=== PATIENT | male | born 1955 | race American Indian/Alaskan Native ===

== ENCOUNTER 2017-05-03 12:39 | Emergency (ER) | payer BC ==
[2017-05-03] MEDS ORDERED: Sodium Chloride 0.9% 1,000 ML IV ONE (13:29)
[2017-05-03] MEDS ORDERED: Sodium Chloride 0.9% 1,000 ML ONE (13:34)
[2017-05-03 13:43] LABS: BASO % 0.3 % (0.0-2.0); HEMATOCRIT 43.8 % (35.0-51.0); LYMPH # 0.6 K/uL (1.0-4.3); LYMPH % 9.5 % (20.0-40.0); MEAN CELL VOLUME 86.4 fL (80.0-94.0); MEAN CORPUSCULAR HEMOGLOBIN 27.3 pg (27.0-31.0); MEAN CORPUSCULAR HGB CONC 31.6 g/dL (33.0-37.0); MEAN PLATELET VOLUME 9.5 fL (7.2-11.7); MONO # 0.3 K/uL (0.0-0.8); MONO % 5.3 % (0.0-10.0); PLATELET COUNT 158 K/uL (130-400); RED CELL DISTRIBUTION WIDTH 13.6 % (11.5-14.5); WHITE BLOOD COUNT 6.6 K/uL (4.8-10.8)
[2017-05-03 13:44] LABS: CHLORIDE 98 mmol/L (98-107)
[2017-05-03 13:45] LABS: SODIUM 139 mmol/L (132-148)
[2017-05-03 13:47] LABS: ALKALINE PHOSPHATASE 55 U/L (38-126); AST/SGOT 29 U/L (17-59); BILIRUBIN,TOTAL 0.7 mg/dL (0.2-1.3); BLOOD UREA NITROGEN 20 mg/dL (9-20); CARBON DIOXIDE 29 mmol/L (22-30); GFR AFRICAN-AMERICAN > 60; RBC URINE 49 /hpf (0-3); TOTAL PROTEIN 8.6 g/dL (6.3-8.3); URINE BILIRUBIN NEGATIVE (NEGATIVE); URINE BLOOD 1+ (NEGATIVE); URINE COLOR Yellow (YELLOW); URINE GLUCOSE (UA) NORMAL (Normal); URINE KETONE TRACE mg/dL (NEGATIVE); URINE LEUKOCYTE ESTERASE NEG Leu/uL (Negative); URINE PROTEIN NEGATIVE (NEGATIVE); URINE UROBILINOGEN NORMAL mg/dL (0.2-1.0); WBC URINE 1 /hpf (0-5)
[2017-05-03 13:48] LABS: ALT/SGPT 31 U/L (21-72); CALCIUM 9.4 mg/dl (8.6-10.4); GLUCOSE,RANDOM 112 mg/dL (75-110)
--- NOTE | 2017-05-03 13:52 | C.PDOC ---
History Of Present Illness 61 y/o male presents to ED with c/o left flank pain starting yesterday since approx 11:00. Patient describes pain as constant, sharp, non-radiating, and associated with nausea and vomiting. He denies diarrhea, dysuria/hematuria. Patient also reports chills, but did not take his temperature. He denies history of kidney stones or UTIs/pyelonephritis. Time Seen by Provider: 05/03/17 13:05 Chief Complaint (Nursing): Male Genitourinary History Per: Patient History/Exam Limitations: no limitations Onset/Duration Of Symptoms: Days Current Symptoms Are (Timing): Still Present Quality Of Discomfort: "Pain" Associated Symptoms: Chills, Nausea, Vomiting. denies: Fever, Diarrhea, Urinary Symptoms Past Medical History Reviewed: Historical Data, Nursing Documentation, Vital Signs Vital Signs: Last Vital Signs Temp 98.5 F 05/03/17 16:09 Pulse 78 05/03/17 16:09 Resp 18 05/03/17 16:09 BP 167/97 H 05/03/17 16:09 Pulse Ox 100 05/03/17 16:09 - Medical History PMH: CHF, HTN Family History: States: No Known Family Hx - Social History Hx Alcohol Use: No Hx Substance Use: No - Immunization History Hx Tetanus Toxoid Vaccination: No Hx Influenza Vaccination: Yes Hx Pneumococcal Vaccination: No Review Of Systems Except As Marked, All Systems Reviewed And Found Negative. Constitutional: Positive for: Chills. Negative for: Fever Cardiovascular: Negative for: Chest Pain, Palpitations Respiratory: Negative for: Cough, Shortness of Breath, Wheezing Gastrointestinal: Positive for: Nausea, Vomiting, Abdominal Pain. Negative for : Diarrhea Genitourinary: Negative for: Dysuria, Hematuria Skin: Negative for: Rash Physical Exam - Physical Exam Appears: Non-toxic, Other (in moderate pain) Skin: Normal Color, Warm, Dry Head: Normacephalic Oral Mucosa: Moist Cardiovascular: Rhythm Regular Respiratory: Normal Breath Sounds, No Rales, No Rhonchi, No Wheezing Gastrointestinal/Abdominal: Normal Exam, Bowel Sounds, Soft, No Tenderness Back: CVA Tenderness (Left) Extremity: Normal ROM Neurological/Psych: Oriented x3 ED Course And Treatment - Laboratory Results Result Diagrams: 05/03/17 13:32 05/03/17 13:32 O2 Sat by Pulse Oximetry: 95 (RA) Pulse Ox Interpretation: Normal - CT Scan/US CT ABD/PELVIS Other Rad Studies (CT/US): Read By Radiologist, Radiology Report Reviewed CT/US Interpretation: Accession No. : [id number]. Patient Name / ID : MARIO MARTINEZ / [id number]. Exam Date : 05/03/2017 15:04:58 ( Approved ). Study Comment : Sex / Age : M / 61Y. Creator : Jean-Paul Terrell MD. Dictator : Jean-Paul Terrell MD. Meat Cutting Teacher : Candy Dipper : Jean-Paul Terrell MD. Approver2 : Report Date : 05/03/2017 15:37:49. My Comment : . PROCEDURE: CT Abdomen and Pelvis without intravenous contrast. HISTORY: LEFT FLANK PAIN, R/ O KIDNEY STONE. COMPARISON: None. TECHNIQUE: Without contrast.. Contrast Dose: 0. Radiation dose: Total exam DLP = 1009.22 mGy-cm. This CT exam was performed using one or more of the following dose reduction techniques: Automated exposure control, adjustment of the mA and/or kV according to patient size, and/or use of iterative reconstruction technique. FINDINGS: LOWER THORAX : Mild cardiomegaly. LIVER: Unremarkable. No gross lesion or ductal dilatation. GALLBLADDER AND BILE DUCTS: Cholelithiasis. No mural thickening or pericholecystic fluid. PANCREAS: Unremarkable. No gross lesion or ductal dilatation. SPLEEN: Unremarkable. ADRENALS: Unremarkable. No mass. KIDNEYS AND URETERS: Left hydroureteronephrosis. Mid/distal left ureteral calculus, 4 mm. Left hydroureteronephrosis. Minimal left perinephric fluid. 2 mm nonobstructing right lower pole renal calculus. No renal mass. VASCULATURE: Unremarkable. No aortic aneurysm. BOWEL: Sigmoid diverticulosis. No evidence of diverticulitis. No other abnormal bowel loops. No bowel obstruction. Mild retained feces. APPENDIX: Unremarkable. Normal appendix. PERITONEUM: No ascites. Umbilical hernia containing only mesenteric fat. Probable varices about left spermatic cord and in left hemiscrotum. LYMPH NODES: Unremarkable. No enlarged lymph nodes. BLADDER: Nondistended. REPRODUCTIVE: Unremarkable prostate. BONES: No acute fracture. OTHER FINDINGS: None. IMPRESSION: Obstructing mid/ distal left ureteral calculus, 4 mm with left hydroureteronephrosis. Mild left perinephric fluid. Nonobstructing 2 mm right lower pole renal calculus. Additional minor findings as above. Progress Note: Blood work, UA, CT abd/pelvis ordered and reviewed. Patient given IV NS bolus, IV toradol. Reevaluation Time: 16:10 Reassessment Condition: Improved (Patient reassessed, is currently resting comfortably, states his pain has improved. On exam, abdomen is soft and nontender. Ct scan shows 4mm stone, patient given Rxs for Flomax and Vicodin, and instructed to follow up with urology within 1 week. Blood work, UA unremarkable. Patient understands he should return to ED if symptoms worsen.) Disposition Counseled Patient/Family Regarding: Studies Performed, Diagnosis, Need For Followup, Rx Given - Disposition Referrals: Jaden Graham MD [Staff Provider] - Simone Garcia MD [Staff Provider] - Disposition: HOME/ ROUTINE Disposition Time: 16:10 Condition: STABLE Additional Instructions: FOLLOW UP WITH YOUR DOCTOR IN 1-2 DAYS, AND WITH UROLOGIST WITHIN 1 WEEK USE MEDICATIONS NEEDED STRAIN YOUR URINE DRINK PLENTY OF FLUIDS RETURN TO ER IF SYMPTOMS WORSEN Prescriptions: Hydrocodone/Acetaminophen [Hydrocodon-Acetaminophen 5-325] 1 each PO Q6 PRN #15 tablet PRN Reason: Pain, Moderate (4-7) Tamsulosin [Flomax] 0.4 mg PO DAILY #5 cap Instructions: Kidney Stones (ED), Renal Colic (ED) Print Language: ERITREAN - POA Present On Arrival: None - Clinical Impression Clinical Impression: Renal colic on left side, Hydronephrosis, Kidney stone on left side - Scribe Statement The provider has reviewed the documentation as recorded by the Josey Gilmore Provider Attestation: All medical record entries made by the Josey were at my direction and personally dictated by me. I have reviewed the chart and agree that the record accurately reflects my personal performance of the history, physical exam, medical decision making, and the department course for this patient. I have also personally directed, reviewed, and agree with the discharge instructions and disposition.
[2017-05-03 14:24] LABS: BASOPHIL 1 % (0-2); NEUTROPHIL 85 % (50-75); TOTAL CELLS COUNTED 100
[2017-05-03 14:25] LABS: LARGE PLATELETS PRESENT
--- NOTE | 2017-05-03 15:39 | CT ---
PROCEDURE: CT Abdomen and Pelvis without intravenous contrast HISTORY: LEFT FLANK PAIN, R/O KIDNEY STONE COMPARISON: None. TECHNIQUE: Without contrast.. Contrast Dose: 0 Radiation dose: Total exam DLP = 1009.22 mGy-cm. This CT exam was performed using one or more of the following dose reduction techniques: Automated exposure control, adjustment of the mA and/or kV according to patient size, and/or use of iterative reconstruction technique. FINDINGS: LOWER THORAX: Mild cardiomegaly LIVER: Unremarkable. No gross lesion or ductal dilatation. GALLBLADDER AND BILE DUCTS: Cholelithiasis. No mural thickening or pericholecystic fluid. PANCREAS: Unremarkable. No gross lesion or ductal dilatation. SPLEEN: Unremarkable. ADRENALS: Unremarkable. No mass. KIDNEYS AND URETERS: Left hydroureteronephrosis. Mid/distal left ureteral calculus, 4 mm. Left hydroureteronephrosis. Minimal left perinephric fluid. 2 mm nonobstructing right lower pole renal calculus. No renal mass. VASCULATURE: Unremarkable. No aortic aneurysm. BOWEL: Sigmoid diverticulosis. No evidence of diverticulitis. No other abnormal bowel loops. No bowel obstruction. Mild retained feces. APPENDIX: Unremarkable. Normal appendix. PERITONEUM: No ascites. Umbilical hernia containing only mesenteric fat. Probable varices about left spermatic cord and in left hemiscrotum. LYMPH NODES: Unremarkable. No enlarged lymph nodes. BLADDER: Nondistended REPRODUCTIVE: Unremarkable prostate BONES: No acute fracture. OTHER FINDINGS: None. IMPRESSION: Obstructing mid/ distal left ureteral calculus, 4 mm with left hydroureteronephrosis. Mild left perinephric fluid. Nonobstructing 2 mm right lower pole renal calculus. Additional minor findings as above.
[2017-05-03 16:09] VITALS: BP 167/97; PULSE 78; RESP 18; TEMP 98.5
[2017-05-08 11:36] VITALS: O2SAT 95
== END 2017-05-03 16:14 | disposition home or self-care (01) ==
LOC: C.ER 12:39
DX: N20.0 Calculus of kidney (principal); N13.30 Unspecified hydronephrosis
CPT/HCPCS: 74176; 80053; 81001; 83690; 85025; 87086; 96374; 99284; J1885; J7040

== ENCOUNTER 2017-05-08 13:03 | Emergency (ER) | payer BC ==
[2017-05-08 13:13] VITALS: O2SAT 98
[2017-05-08] MEDS ORDERED: Sodium Chloride 0.9% 1,000 ML IV ONE (14:08)
--- NOTE | 2017-05-08 14:19 | C.PDOC ---
History Of Present Illness 61 y/o male, who was seen in this ER on 05/03 and diagnosed with renal colic, 4mm stone left ureter with moderate hydronephrosis, discharged with Flomax and Percocet, and notes he has been taking Advil. Patient reports pain has persisted and still c/o left flank pain, radiating to left groin and left testicle. Patient states he called Dr. Garcia for follow up but unable to get an appointment until 05/17. Patient states he began to feel feverish, prompting visit. Denies nausea, vomiting, diarrhea, urinary symptoms, or other complaints. Time Seen by Provider: 05/08/17 13:56 Chief Complaint (Nursing): Male Genitourinary History Per: Patient History/Exam Limitations: no limitations Onset/Duration Of Symptoms: Days Current Symptoms Are (Timing): Worse Quality Of Discomfort: "Pain" Associated Symptoms: Fever (subjective). denies: Diarrhea, Chest Pain, Urinary Symptoms Recent travel outside of the [place]: No Past Medical History Reviewed: Historical Data, Nursing Documentation, Vital Signs Vital Signs: Last Vital Signs Temp 98.5 F 05/08/17 13:11 Pulse 88 05/08/17 13:11 Resp 20 05/08/17 13:11 BP 148/75 05/08/17 13:11 Pulse Ox 98 05/08/17 15:48 - Medical History PMH: CHF, HTN Family History: States: Unknown Family Hx - Social History Hx Alcohol Use: No Hx Substance Use: No - Immunization History Hx Tetanus Toxoid Vaccination: No Hx Influenza Vaccination: Yes Hx Pneumococcal Vaccination: No Review Of Systems Constitutional: Negative for: Fever, Chills Cardiovascular: Negative for: Chest Pain Respiratory: Negative for: Shortness of Breath Gastrointestinal: Positive for: Other (flank pain). Negative for: Nausea, Vomiting Genitourinary: Negative for: Dysuria, Hematuria Musculoskeletal: Negative for: Back Pain Skin: Negative for: Rash Neurological: Negative for: Headache, Dizziness Physical Exam - Physical Exam Appears: Non-toxic, No Acute Distress Skin: Warm, Dry Head: Atraumatic, Normacephalic Oral Mucosa: Moist Chest: Symmetrical Cardiovascular: Rhythm Regular Respiratory: Normal Breath Sounds, No Rales, No Rhonchi, No Wheezing Gastrointestinal/Abdominal: Soft, No Tenderness, No Distention, No Guarding, No Rebound Back: No CVA Tenderness Extremity: Normal ROM, Capillary Refill (< 2 sec. ) Neurological/Psych: Oriented x3, Normal Speech, Normal Cognition ED Course And Treatment - Laboratory Results Result Diagrams: 05/08/17 14:21 05/08/17 14:21 Lab Interpretation: No Acute Changes O2 Sat by Pulse Oximetry: 98 (RA) Pulse Ox Interpretation: Normal - CT Scan/US CT abdomen and pelvis Other Rad Studies (CT/US): Read By Radiologist, Radiology Report Reviewed CT/US Interpretation: Accession No. : [id number]. Patient Name / ID : MARIO MARTINEZ / [id number]. Exam Date : 05/08/2017 15:02:37 ( Approved ). Study Comment : Sex / Age : M / 61Y. Creator : Teetee Salinas MD. Dictator : Teetee Salinas MD. Vehicle Return Associate : Senior Living Sales Counselor : Teetee Salinas MD. Approver2 : Report Date : 05/08/2017 15:38:00. My Comment : . PROCEDURE: CT Abdomen and Pelvis without Oral or IV contrast. HISTORY: abd pain. COMPARISON: CT abdomen and pelvis without oral or IV contrast performed 05/03/17. TECHNIQUE: Contiguous axial images of the abdomen and pelvis. No oral or IV contrast administered. Coronal and Sagittal reformats generated and reviewed. Radiation dose: Total exam DLP = 621.75 mGy-cm. This CT exam was performed using one or more of the following dose reduction techniques: Automated exposure control, adjustment of the mA and/or kV according to patient size, and/or use of iterative reconstruction technique. FINDINGS: There is limited evaluation of the solid organs without the administration of IV contrast. LOWER THORAX: Bibasilar atelectasis. No pleural effusion or pneumothorax. LIVER: Unremarkable unenhanced appearance. GALLBLADDER AND BILE DUCTS: Punctate gallstone in the gallbladder. PANCREAS: Unremarkable unenhanced appearance. SPLEEN: Unremarkable unenhanced appearance. ADRENALS: Unremarkable unenhanced appearance. KIDNEYS AND URETERS : Distal 3 mm left ureteral calculus with proximal hydroureteronephrosis ( series 3, image 153). Nonobstructing 3 mm right lower pole renal calculus. BLADDER: Under distention of the urinary bladder limits evaluation. 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 Borderline wall thickening presumably exaggerated by under distension. REPRODUCTIVE: The prostate gland measures approximately 5.0 x 5.2 cm. APPENDIX: The appendix appears within normal limits of caliber. No secondary signs of acute appendicitis. BOWEL: The stomach is nondistended. Lack of oral contrast limits evaluation for bowel pathology. The bowel loops appear within normal limits of caliber without evidence of intestinal obstruction. Diverticulosis without CT evidence of acute diverticulitis. Moderate to severe constipation. PERITONEUM: No significant free fluid. No definite free air. LYMPH NODES: No bulky lymphadenopathy identified. VASCULATURE: No aortic aneurysm. BONES: Degenerative changes. Mild curvature of the thoracolumbar spine convex to the right. OTHER FINDINGS: Fat containing ventral wall hernia. Fat and vessels within left inguinal hernia. IMPRESSION: Distal 3 mm left ureteral calculus with proximal hydroureteronephrosis. Nonobstructing 3 mm right lower pole renal calculus. Cholelithiasis. Under distention of the urinary bladder limits evaluation. Borderline wall thickening presumably exaggerated by under distension. Recommend correlation with urinalysis to exclude possibility of cystitis. 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 Patients with a urachal remnant are at increased risk for adenocarcinoma of the bladder. Diverticulosis without CT evidence of acute diverticulitis. Moderate constipation. Enlarged prostate gland. Recommend correlation with PSA. Fat containing ventral wall hernia. Fat and vessels within left inguinal hernia. Additional findings as above. Progress Note: Treated with Toradol and IV fluids. Labs and CT abdomen/pelvis ordered. Reevaluation Time: 15:47 Reassessment Condition: Improved - Physician Consult Information Time Consulting Physician Contacted: 15:48 Physician Contacted: Simone Garcia Outcome Of Conversation: Patient is to continue taking the Flomax twice a day. He should take the Percocet as needed for pain. He can also take Advil 2-3 talbets every 6 hours as needed. He shuld return to the ED for any nausea or vomiting of onset of fever. He will see him in the office as scheduled. Disposition Counseled Patient/Family Regarding: Studies Performed, Diagnosis, Need For Followup - Disposition Referrals: Simone Garcia MD [Staff Provider] - Disposition: HOME/ ROUTINE Disposition Time: 16:01 Condition: IMPROVED Instructions: Renal Colic (ED) - Clinical Impression Clinical Impression: Renal colic on left side, Hydronephrosis - Scribe Statement The provider has reviewed the documentation as recorded by the Josey Gilmore Provider Attestation: All medical record entries made by the Josey were at my direction and personally dictated by me. I have reviewed the chart and agree that the record accurately reflects my personal performance of the history, physical exam, medical decision making, and the department course for this patient. I have also personally directed, reviewed, and agree with the discharge instructions and disposition.
[2017-05-08] MEDS ORDERED: Sodium Chloride 0.9% 1,000 ML ONE (14:20)
[2017-05-08 14:26] LABS: BASO # 0.1 K/uL (0.0-0.2); BASO % 1.5 % (0.0-2.0); EOS % 0.7 % (0.0-4.0); HEMOGLOBIN 13.3 g/dL (12.0-18.0); LYMPH # 0.7 K/uL (1.0-4.3); LYMPH % 12.8 % (20.0-40.0); MEAN CELL VOLUME 87.8 fL (80.0-94.0); MEAN CORPUSCULAR HEMOGLOBIN 27.7 pg (27.0-31.0); MEAN CORPUSCULAR HGB CONC 31.6 g/dL (33.0-37.0); MEAN PLATELET VOLUME 10.1 fL (7.2-11.7); MONO # 0.6 K/uL (0.0-0.8); MONO % 11.8 % (0.0-10.0); NEUT % 73.2 % (50.0-75.0); NRBC % 0.1 % (0.0-2.0); RBC 4.79 Mil/uL (4.40-5.90); RED CELL DISTRIBUTION WIDTH 13.9 % (11.5-14.5); WHITE BLOOD COUNT 5.4 K/uL (4.8-10.8)
[2017-05-08 14:33] LABS: SQUAMOUS EPITHIAL < 1 /hpf (0-5); URINE BILIRUBIN NEGATIVE (NEGATIVE); URINE BLOOD NEGATIVE (NEGATIVE); URINE CLARITY Clear (Clear); URINE COLOR Yellow (YELLOW); URINE GLUCOSE (UA) NORMAL (Normal); URINE LEUKOCYTE ESTERASE NEG Leu/uL (Negative); URINE NITRATE NEGATIVE (NEGATIVE); URINE PROTEIN 1+ mg/dL (NEGATIVE)
[2017-05-08 14:41] LABS: CALCIUM 9.3 mg/dl (8.6-10.4)
--- NOTE | 2017-05-08 15:39 | CT ---
PROCEDURE: CT Abdomen and Pelvis without Oral or IV contrast. HISTORY: abd pain COMPARISON: CT abdomen and pelvis without oral or IV contrast performed 05/03/17 TECHNIQUE: Contiguous axial images of the abdomen and pelvis. No oral or IV contrast administered. Coronal and Sagittal reformats generated and reviewed. Radiation dose: Total exam DLP = 621.75 mGy-cm. This CT exam was performed using one or more of the following dose reduction techniques: Automated exposure control, adjustment of the mA and/or kV according to patient size, and/or use of iterative reconstruction technique. FINDINGS: There is limited evaluation of the solid organs without the administration of IV contrast. LOWER THORAX: Bibasilar atelectasis. No pleural effusion or pneumothorax. LIVER: Unremarkable unenhanced appearance. GALLBLADDER AND BILE DUCTS: Punctate gallstone in the gallbladder. PANCREAS: Unremarkable unenhanced appearance. SPLEEN: Unremarkable unenhanced appearance. ADRENALS: Unremarkable unenhanced appearance. KIDNEYS AND URETERS: Distal 3 mm left ureteral calculus with proximal hydroureteronephrosis (series 3, image 153). Nonobstructing 3 mm right lower pole renal calculus. BLADDER: Under distention of the urinary bladder limits evaluation. 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 Borderline wall thickening presumably exaggerated by under distension. REPRODUCTIVE: The prostate gland measures approximately 5.0 x 5.2 cm. APPENDIX: The appendix appears within normal limits of caliber. No secondary signs of acute appendicitis. BOWEL: The stomach is nondistended. Lack of oral contrast limits evaluation for bowel pathology. The bowel loops appear within normal limits of caliber without evidence of intestinal obstruction. Diverticulosis without CT evidence of acute diverticulitis. Moderate to severe constipation. PERITONEUM: No significant free fluid. No definite free air. LYMPH NODES: No bulky lymphadenopathy identified. VASCULATURE: No aortic aneurysm. BONES: Degenerative changes. Mild curvature of the thoracolumbar spine convex to the right. OTHER FINDINGS: Fat containing ventral wall hernia. Fat and vessels within left inguinal hernia. IMPRESSION: Distal 3 mm left ureteral calculus with proximal hydroureteronephrosis. Nonobstructing 3 mm right lower pole renal calculus. Cholelithiasis. Under distention of the urinary bladder limits evaluation. Borderline wall thickening presumably exaggerated by under distension. Recommend correlation with urinalysis to exclude possibility of cystitis. 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 Patients with a urachal remnant are at increased risk for adenocarcinoma of the bladder. Diverticulosis without CT evidence of acute diverticulitis. Moderate constipation. Enlarged prostate gland. Recommend correlation with PSA. Fat containing ventral wall hernia. Fat and vessels within left inguinal hernia. Additional findings as above.
[2017-05-08 16:15] VITALS: BP 154/94; PULSE 61; RESP 16; TEMP 97.6
== END 2017-05-08 16:15 | disposition home or self-care (01) ==
LOC: C.ER 13:03
DX: N13.2 Hydronephrosis with renal and ureteral calculous obstruction (principal)
CPT/HCPCS: 74176; 80053; 81001; 85025; 96361; 96374; 99284; J1885; J7040